=== PATIENT | male | born 1985 | race Asian ===

== ENCOUNTER 2022-08-20 06:17 | Emergency (ER) | payer MEDICAID ==
[~2022-08-20] VITALS: Ht 193 cm; Wt 172.0 kg
[2022-08-20] MEDS ORDERED: PREDNISONE 20MG TABLET PO STA (07:00)
[2022-08-20] MEDS ORDERED: ALBUTEROL (0.083%) 2.5MG/3ML NEB HHN STA (07:00)
[2022-08-20] MEDS ORDERED: IPRATROPIUM BROMIDE (0.02%) 0.5MG/2.5ML NEB HHN STA (07:00)
[2022-08-20] MEDS ORDERED: P50 PO (09:18)
[2022-08-20] MEDS ORDERED: ALBU6.7H3 INH (09:18)
[2022-08-20 09:39] VITALS: BP 123/67
== END 2022-08-20 09:42 | disposition home or self-care (01) ==
LOC: ER 06:17
DX: J45.901 Unspecified asthma with (acute) exacerbation (principal)
CPT/HCPCS: 71045; 94640; 99283; J7512; Z7610